=== PATIENT | female | born 1985 | race Caucasian/White ===

== ENCOUNTER 2017-06-04 20:37 | Outpatient (CLI) | payer MEDICAID ==
[2017-06-04 21:56] LABS: ADD UMIC YES; UR ASCORBIC ACID NEGATIVE (NEGATIVE); UR BACTERIA FEW /HPF (NONE SEEN); UR BILIRUBIN (Dip) NEGATIVE (NEGATIVE); UR BLOOD (Dip) 3+ mg/dL (NEGATIVE); UR CLARITY CLEAR (CLEAR); UR COLOR STRAW (YELLOW); UR GLUCOSE (Dip) NEGATIVE (NEGATIVE); UR KETONES (Dip) NEGATIVE (NEGATIVE); UR LEUKOCYTE ESTERASE (Dip) NEGATIVE Leu/ul (NEGATIVE); UR NITRITE (Dip) NEGATIVE (NEGATIVE); UR RBC 1 /HPF (0-5); UR SPECIFIC GRAVITY (Dip) 1.001 (1.003-1.030); UR TOTAL PROTEIN (Dip) NEGATIVE (NEGATIVE); UR UROBILINOGEN (Dip) NEGATIVE (NEGATIVE); UR WBC 0 /HPF (0-5)
== END 2017-06-05 00:05 | disposition home or self-care (01) ==
LOC: OBT 20:37 → L-D 20:40
DX: O26.853 Spotting complicating pregnancy, third trimester (principal); Z3A.29 29 weeks gestation of pregnancy
CPT/HCPCS: 76817; 81001; 87086

== ENCOUNTER 2018-06-25 20:53 | Inpatient (IN) | payer MEDICAID ==
[2018-06-26 01:33] LABS: ADD MAN DIFF? NO
[2018-06-26 01:36] LABS: WHITE BLOOD COUNT 7.3 10^3/ul (4.8-10.8)
[2018-06-26 01:36] LABS: BASOPHILS % 0.1 % (0.0-2.0); EOSINOPHILS # 0.1 10^3/ul (0.0-0.5); EOSINOPHILS % 1.9 % (0.0-7.0); HEMATOCRIT 35.6 % (37.0-47.0); HEMOGLOBIN 11.9 g/dl (12.0-16.0); LYMPHOCYTES # 2.9 10^3/ul (0.8-2.9); LYMPHOCYTES % 39.6 % (15.0-51.0); MEAN CORPUSCULAR HEMOGLOBIN 29.3 pg (29.0-33.0); MEAN CORPUSCULAR HGB CONC 33.4 g/dl (32.0-37.0); MEAN CORPUSCULAR VOLUME 87.7 fl (82.0-101.0); MEAN PLATELET VOLUME 10.8 fl (7.4-10.4); MONOCYTE # 0.4 10^3/ul (0.3-0.9); NEUTROPHIL # 3.8 10^3/ul (1.6-7.5); PLATELET COUNT 250 10^3/UL (140-415); RED BLOOD COUNT 4.06 10^6/ul (4.20-5.40); RED CELL DISTRIBUTION WIDTH 12.8 % (11.5-14.5)
[2018-06-26 01:56] LABS: ALANINE AMINOTRANSFERASE 41 IU/L (13-69); ALBUMIN 3.3 g/dl (3.3-4.9); ALBUMIN/GLOBULIN RATIO 0.94; ALKALINE PHOSPHATASE 197 IU/L (42-121); ANION GAP 10 (5-13); ASPARTATE AMINO TRANSFERASE 21 IU/L (15-46); BLOOD UREA NITROGEN 8 mg/dl (7-20); CALCIUM 9.8 mg/dl (8.4-10.2); CARBON DIOXIDE 20 mmol/L (21-31); CHLORIDE 104 mmol/L (97-110); CREATININE 0.46 mg/dl (0.44-1.00); Estimated GFR > 60 mL/min (>60); GLUCOSE 86 mg/dl (70-220); POTASSIUM 3.9 mmol/L (3.5-5.1); SODIUM 134 mmol/L (135-144); TOTAL PROTEIN 6.8 g/dl (6.1-8.1)
[2018-06-26] MEDS: LACTATED RINGER'S 1,000 ML IV ×3 (02:00→10:05)
[2018-06-26] MEDS: DEXTROSE 5%-LR 1,000 ML IV (04:03)
[2018-06-26 05:18] LABS: INR 0.88; PARTIAL THROMBOPLASTIN TIME 25.8 Sec (23.0-35.0); PT RATIO 0.9
[2018-06-26] MEDS: DEXAMETHASONE 4 MG/ML 5 ML INJ IM (05:43)
[2018-06-26 05:53] LABS: HEPATITIS B SURFACE ANTIGEN NEGATIVE (NEGATIVE)
[2018-06-26 06:03] LABS: HIV 1&2 ANTIBODY NEGATIVE (NEGATIVE)
[2018-06-26] MEDS: ACCU-CHEK XX (08:00)
[2018-06-26] MEDS ORDERED: PRENATAL VITAMIN PO (09:00)
[2018-06-26] MEDS ORDERED: LACTATED RINGER'S 1,000 ML IV (09:53)
[2018-06-26] MEDS ORDERED: METHYLERGONOVINE 0.2 MG INJ IM ×3 (10:00→19:30)
[2018-06-26] MEDS ORDERED: OXYTOCIN 30 UNITS/LR 500 ML IV ×5 (10:00→19:30)
[2018-06-26] MEDS ORDERED: MISOPROSTOL 200 MCG TAB PR ×3 (10:00→19:30)
[2018-06-26] MEDS ORDERED: CARBOPROST 250 MCG INJ IM ×3 (10:00→19:30)
[2018-06-26] MEDS ORDERED: CEFAZOLIN 2 GM/50 ML (PMX) 50 ML IVPB (10:01)
[2018-06-26] MEDS: FAMOTIDINE 20 MG INJ IV (10:10)
[2018-06-26] MEDS: CITRIC ACID/NA CITRATE 30 ML CUP PO (10:10)
[2018-06-26] MEDS: METOCLOPRAMIDE 10 MG INJ IV (10:10)
[2018-06-26] MEDS ORDERED: morphine SULFATE/PF (10 MG/10 ML) INJ (10:37)
[2018-06-26] MEDS ORDERED: MIDAZOLAM 1 MG/ML 2 ML INJ (11:29)
[2018-06-26] MEDS ORDERED: FENTAnyl 50 MCG/ML VIAL IV ×3 (11:30)
[2018-06-26] MEDS ORDERED: KETOROLAC 30 MG INJ IV ×2 (11:30→15:30)
[2018-06-26] MEDS ORDERED: ONDANSETRON 4 MG INJ IV ×2 (11:30→15:30)
[2018-06-26] MEDS ORDERED: ONDANSETRON 4 MG INJ (11:30)
[2018-06-26] MEDS ORDERED: PROCHLORPERAZINE 10 MG INJ IV (11:30)
[2018-06-26] MEDS ORDERED: DIPHENHYDRAMINE 50 MG INJ IV ×3 (11:30→21:30)
[2018-06-26] MEDS ORDERED: EPHEDrine SULFATE 50 MG/5 ML SYG IV (11:30)
[2018-06-26] MEDS ORDERED: HYDROmorphONE 1 MG/5 ML IV SYRINGE IV ×3 (11:30)
[2018-06-26] MEDS ORDERED: MEPERIDINE 25 MG INJ IV (11:30)
[2018-06-26 11:38] LABS: Arterial Cord Blood pCO2 61.4 mmHG (25-50); CBA Base Excess -7.5 mmol/L; CBA COHb 0.3 %; CBA Total Hemglobin 15.5 g/dl; CBV Base Excess -8.2 mmol/L; CBV COHb 0.5 %; CBV Oxygen Sat 23.5 mmHG; CBV Total Hemglobin 15.6 g/dl; Cord Blood Venous pO2 14.5 mmHG (15.0-45.0); Fraction OxyHgb Cord Arterial 3.4 %; MODE ROOM AIR; MetHgb Cord Arterial 1.6 %; MetHgb Cord Venous 1.6 %; Sample Type CBA; Sample Type CBV; Site CORD
[2018-06-26] MEDS ORDERED: DEXAMETHASONE 4 MG/ML 5 ML INJ IM (12:00)
[2018-06-26] MEDS: CEFAZOLIN 2 GM/50 ML (PMX) 50 ML IVPB (12:21)
[2018-06-26] MEDS: OXYTOCIN 30 UNITS/LR 500 ML IV ×2 (12:23→17:26)
[2018-06-26] MEDS ORDERED: LANOLIN HPA 1 PKT TOP ×2 (14:00→19:30)
[2018-06-26] MEDS ORDERED: NACL 0.9% 3 ML SYG IV ×2 (14:00→19:30)
[2018-06-26] MEDS: IBUPROFEN 600 MG TAB PO ×2 (14:00→17:24)
[2018-06-26] MEDS ORDERED: HYDROCODONE/APAP (5/325) TAB PO ×2 (14:00→19:30)
[2018-06-26 15:12] LABS: RAPID PLASMA REAGIN NONREACTIVE (NR)
[2018-06-26] MEDS ORDERED: HYDROmorphONE 0.5 MG/0.5 ML SYG IV ×2 (15:30)
[2018-06-26] MEDS ORDERED: ZOLPIDEM 5 MG TAB PO (15:30)
[2018-06-26] MEDS ORDERED: NALOXONE (0.4 MG/ML) INJ IV (15:30)
[2018-06-26] MEDS ORDERED: IBUPROFEN 600 MG TAB PO (19:30)
[2018-06-26] MEDS ORDERED: PROGESTERONE 100 MG CAP VAG (21:00)
[2018-06-26] MEDS ORDERED: HYDROmorphONE 1 MG/ML SYG IV (21:30)
[2018-06-27] MEDS: OXYTOCIN 30 UNITS/LR 500 ML IV (04:19)
[2018-06-27 08:27] LABS: ADD MAN DIFF? NO
[2018-06-27 08:30] LABS: BASOPHILS % 0.1 % (0.0-2.0); EOSINOPHILS % 0.3 % (0.0-7.0); HEMOGLOBIN 9.5 g/dl (12.0-16.0); LYMPHOCYTES # 2.7 10^3/ul (0.8-2.9); LYMPHOCYTES % 34.7 % (15.0-51.0); MEAN CORPUSCULAR HEMOGLOBIN 29.2 pg (29.0-33.0); MEAN CORPUSCULAR HGB CONC 32.8 g/dl (32.0-37.0); MEAN CORPUSCULAR VOLUME 89.2 fl (82.0-101.0); MEAN PLATELET VOLUME 11.1 fl (7.4-10.4); MONOCYTE # 0.4 10^3/ul (0.3-0.9); MONOCYTES % 4.7 % (0.0-11.0); NEUTROPHIL # 4.6 10^3/ul (1.6-7.5); NEUTROPHILS % 59.8 % (39.0-77.0); PLATELET COUNT 199 10^3/UL (140-415); RED BLOOD COUNT 3.25 10^6/ul (4.20-5.40); RED CELL DISTRIBUTION WIDTH 12.8 % (11.5-14.5)
[2018-06-27 08:30] LABS: WHITE BLOOD COUNT 7.6 10^3/ul (4.8-10.8)
[2018-06-27] MEDS: KETOROLAC 30 MG INJ IV (10:04)
[2018-06-27] MEDS: IBUPROFEN 600 MG TAB PO ×2 (11:43→17:40)
[2018-06-28] MEDS: IBUPROFEN 600 MG TAB PO ×5 (00:33→23:41)
[2018-06-29] MEDS: IBUPROFEN 600 MG TAB PO ×2 (06:00→12:16)
[2018-06-29] MEDS ORDERED: DIPHTH/TET/ACEL PERTUSS (ADULT) 0.5 ML VIAL IM* (09:00)
[2018-06-29] MEDS ORDERED: MEASLES,MUMPS,RUBELLA VACCINE INJ SC* (09:00)
[2018-06-29 12:16] LABS: RUBELLA ANTIBODY - IGM <20.00 AU/mL
[2018-06-29 13:06] LABS: RUBELLA ANTIBODY - IGG <0.90 index
== END 2018-06-29 14:26 | disposition home or self-care (01) | DRG 788 ==
LOC: OBT 20:53 → L-D 20:57 → PP1 06-26 14:56
PROC: 10D00Z1 Extraction of Products of Conception, Low, Open Approach (ICD-10-PCS; principal; 2018-06-26)
DX: O76 Abnormality in fetal heart rate and rhythm complicating labor and delivery (principal); O36.8130 Decreased fetal movements, third trimester, not applicable or unspecified; O24.420 Gestational diabetes mellitus in childbirth, diet controlled; O36.5930 Maternal care for other known or suspected poor fetal growth, third trimester, not applicable or unspecified; O32.1XX0 Maternal care for breech presentation, not applicable or unspecified; Z3A.35 35 weeks gestation of pregnancy; Z37.0 Single live birth
CPT/HCPCS: 36415; 36600; 74018; 76815; 76818; 76820; 80053; 82731; 82803; 82962; 85025; 85610; 85730; 86592; 86703; 86762; 86885; 86900; 86901; 87340; 88307; 99464